=== PATIENT | male | born 1950 | race Two or more races ===

== ENCOUNTER 2019-09-24 11:17 | Day surgery (SDC) | payer MEDICARE, BC ==
--- NOTE | 2019-09-21 10:18 | HP ---
PREOPERATIVE HISTORY AND PHYSICAL: DATE OF ADMISSION/SURGERY: 09/24/19 DATE OF OFFICE VISIT/ENCOUNTER: 09/09/19 ATTENDING SURGEON: Enio Perez MD * (DICTATED BY JARET CAMPOS) PROCEDURE: Left shoulder arthroscopic rotator cuff repair versus superior capsular repair versus partial repair, arthroscopic decompression, possible removal of loose bodies, possible distal clavicle resection. HISTORY OF PRESENT ILLNESS: This is a 69-year-old man, left-hand dominant, with a prior history of rotator cuff repair surgeries, left shoulder, who suffered an anterior glenohumeral joint dislocation when he fell on 08/27/19. The shoulder was dislocated for 4 to 5 hours and he had it relocated in the hospital at [facility]. He recovered in a shoulder immobilizer, continued to have pain and weakness in the left shoulder. Subsequent MRI shows a recurrent rotator cuff tendon tear, loose bodies at the glenohumeral joint, and AC joint osteoarthritis. Dr. Perez is recommending surgical intervention at this time for best outcome and the patient has consented to proceed. PAST MEDICAL HISTORY: 1. Sleep apnea. 2. History of prostate cancer. PAST SURGICAL HISTORY: 1. Left shoulder rotator cuff repair x2. 2. Prostate surgery. 3. Open reduction internal fixation, right femur. 4. Tonsillectomy. MEDICATIONS: None. ALLERGIES: PENICILLIN, reaction unknown. FAMILY MEDICAL HISTORY: Heart disease, hypothyroidism. SOCIAL HISTORY: The patient is a retired landlord. He denies tobacco use, recreational drug use. He drinks alcohol on rare occasion. REVIEW OF SYSTEMS: Negative for general, cephalic, cardiovascular, respiratory , GI, , other musculoskeletal, integumentary, endocrine, neurologic, and hematologic symptoms. Infectious Disease: Negative for history of MRSA, hepatitis C, HIV. PHYSICAL EXAMINATION GENERAL: A well-developed, well-nourished 69-year-old male, in no acute distress. VITAL SIGNS: Height 5 feet 10 inches, weight 193 pounds. Pulse rate 100, blood pressure 124/84. HEENT: Normocephalic, atraumatic. Pupils are equal, round, and reactive to light and accommodation. Extraocular movements are intact. Throat is clear. NECK: Supple. No palpable lymph nodes. PULMONARY: Lungs are clear to auscultation bilaterally. No wheezes, rales, or rhonchi. CARDIOVASCULAR: Regular rate and rhythm. S1, S2. No murmurs, rubs, or gallops. No edema. ABDOMEN: Positive bowel sounds. Soft, nontender. MUSCULOSKELETAL: On exam of the left shoulder, there is ecchymosis about the upper arm. Passive range of motion of the left shoulder is 160 degrees of forward flexion, 70 degrees of external, and 60 degrees of internal rotation. Pain and weakness with supraspinatus stress testing with an audible crack. Pain with infraspinatus stress testing with a lag to 10 degrees external rotation with the arm at the side. NEUROLOGICAL: Alert and oriented x3. Cranial nerves II through XII are intact. Sensation is intact to light touch. IMAGING STUDIES: Left shoulder x-rays from 08/27/19 show no clear humeral head elevation. There is a possible Hill-Sachs deformity. MRI from 09/08/19 shows evidence of prior rotator cuff tendon repairs. Much of the anterior supraspinatus seems intact. The posterior supraspinatus appears torn and retracted between the apex of the humeral head and the glenoid. It is difficult to tell how much of the infraspinatus may be involved. There is significant bruising, but only minimal indent Hill-Sachs compression. There is much signal around the metallic rotator cuff anchor that is present. Subscapularis does not appear to be involved. There appear to possibly be a little bit of biceps tendon still present in the bicipital groove, but unlikely. The radiologist felt that the rotator cuff that had re-torn with the posterior supraspinatus in the anterior margin of the infraspinatus. He noted some humeral head subluxation posterior and superior, some glenohumeral ligament stretch tears and loose bodies about the joint space glenohumeral. Significant fat atrophy of the infraspinatus quite severe, [id number] of the supraspinatus. ASSESSMENT: 1. Recent left shoulder first time anterior glenohumeral joint dislocation. 2. Left shoulder recurrent rotator cuff tendon tear. 3. Left shoulder prior history of 2 prior rotator cuff tendon repairs performed at outside hospitals 3 and 12 years ago. 4. Left shoulder glenohumeral joint loose body, small. 5. Left shoulder acromioclavicular joint osteoarthritis. PLAN: The patient is scheduled to undergo surgery with Dr. Perez on 09/24/19 a left shoulder arthroscopic rotator cuff repair versus subcapsular repair versus partial repair, arthroscopic decompression, possible removal of loose bodies, possible distal clavicle resection. He will return to the office 10 to 14 days postop for followup and suture removal. Risks and benefits of surgery were discussed with the patient by Dr. Perez and the patient has consented to proceed. Postoperative pain medications will be prescribed day of surgery. JARET CAMPOS [id number]/[facility] #: [id number] [facility] HOSPITALMckenna
[~2019-09-24 11:17] MED LIST: Buffered Lidocaine 1% SYRIN* 1 ML/SYRINGE INTRADERM ONE; DiMENhydriNATE IV* 50 MG/ML VIAL IV PUSH PRN; HYDROmorphone INJ1* 1 MG/ML SYRINGE IV PRN; Lactated Ringers 1000 ML Bag* 1,000 ML IV SCH; Naloxone* 0.4 MG/ML 1 ML VIAL IV PRN; Ondansetron INJ* 2 MG/ML VIAL IV PRN
[2019-09-24] MEDS ORDERED: Clindamycin 900 MG/D5W BAG(*) 900 MG/50 ML BAG IVPB ONE (13:04)
[2019-09-24] MEDS ORDERED: Buffered Lidocaine 1% SYRIN* 1 ML/SYRINGE INTRADERM ONE (13:04)
[2019-09-24] MEDS ORDERED: Midazolam* 1 MG/ML 2 ML VIAL (2 MG) ONE (14:35)
[2019-09-24] MEDS ORDERED: fentaNYL* 50 MCG/ML 2 ML VIAL (100 MCG VIAL) ONE ×2 (14:35→18:15)
[2019-09-24] MEDS ORDERED: Famotidine IV* 10 MG/ML 2 ML (20 mg) ONE (15:24)
[2019-09-24] MEDS ORDERED: ROPIVACAINE 5 MG/ML 30 ML BTL (0.5%) ONE (15:37)
[2019-09-24] MEDS ORDERED: Bupivacaine 0.5% W/EPI SDV* 30 ML VIAL ONE (15:51)
[2019-09-24] MEDS ORDERED: EPINEPHRINE 1 MG/ML 1 ML VIAL ONE (15:54)
[2019-09-24] MEDS ORDERED: Lidocaine 2% PF * 5 ML VIAL ONE (16:05)
[2019-09-24] MEDS ORDERED: Propofol* 10 MG/ML 20 ML BTL ONE (16:06)
[2019-09-24] MEDS ORDERED: Rocuronium* 10 MG/ML VIAL ONE (16:06)
[2019-09-24] MEDS ORDERED: Dexamethasone IV* 4 MG/ML 1 ML (4 MG) ONE (16:06)
[2019-09-24] MEDS ORDERED: Ondansetron INJ* 2 MG/ML VIAL ONE (16:06)
[2019-09-24] MEDS ORDERED: Ketorolac INJ* 30 MG/ML 1 ML VIAL ONE (16:06)
[2019-09-24] MEDS ORDERED: EPHEDrine (Pressors)* 50 MG/ML VIAL ONE (16:43)
[2019-09-24] MEDS ORDERED: Labetalol IV* 5 MG/ML 20 ML VIAL ONE (18:34)
[2019-09-24 20:31] VITALS: BP 121/85
--- NOTE | 2019-09-26 21:44 | OP ---
OPERATIVE REPORT: DATE OF OPERATION: 09/24/19 DATE OF : 54 SURGEON: Dr. Enio Perez. AUDITING CONTROL CLERK: JARET Galvez and then by JARET Maria. A physician purchasing assistant was required for the length of the procedure for assistance with patient positioning, instrumentation, retraction, and closure. ANESTHESIOLOGIST: Dr. Harrison Watters. ANESTHESIA: General anesthesia, regional interscalene block anesthesia. PRE-OP DIAGNOSES: 1. Recent left shoulder first time anterior glenohumeral joint dislocation. 2. Left shoulder recurrent rotator cuff tendon tear. 3. Left shoulder prior history of 2 prior rotator cuff tendon repairs performed at an outside hospital. 4. Left shoulder glenohumeral joint loose bodies, small. 5. Left shoulder AC joint osteoarthritis. 6. Left shoulder subacromial impingement and bursitis. POST-OP DIAGNOSES: 1. Recent left shoulder first time anterior glenohumeral joint dislocation. 2. Left shoulder recurrent rotator cuff tendon tear. 3. Left shoulder prior history of 2 prior rotator cuff tendon repairs performed at an outside hospital. 4. Left shoulder glenohumeral joint loose bodies, small. 5. Left shoulder AC joint osteoarthritis. 6. Left shoulder subacromial impingement and bursitis. OPERATIVE PROCEDURES: 1. Left shoulder arthroscopic rotator cuff tendon repair, double row suture anchor fixation of an L-shaped tear along with biologic patch placement. 2. Modifier 22 for the unusual or complex nature of this procedure. This is the third rotator cuff repair for this patient. I therefore utilized both suture anchors and a biologic patch. Double row fixation along with side-to- side suturing of a complex L-shaped tear required greater than average time and consideration to the repair procedure. 3. Left shoulder arthroscopic subacromial decompression. 4. Left shoulder arthroscopic debridement of foreign body, suture material, subacromial bursitis. INDICATIONS FOR PROCEDURE: The patient is a 69-year-old man, with a history of prior 2 rotator cuff repair surgeries, 3 and 12 years ago in [place], [place] , who fell recently while skiing on 08/27/19 and sustained a shoulder glenohumeral joint dislocation. The patient had been told by his surgeon 3 years ago that his rotator cuff was barely repairable given the tissue quality. When I met the patient in clinic, he had significant pain and weakness after his dislocation, concerning for a rotator cuff tendon retear. I therefore ordered an MRI. This showed a supraspinatus rotator cuff tendon tear. It showed evidence of prior repair surgeries. The tear was noted by myself and Radiology to consist of the posterior supraspinatus tendon. However, we both noted the significant fatty atrophy of the infraspinatus muscle. The infraspinatus tendon looked very low caliber, low quality and very thin. Discussed nonoperative and operative treatment. The patient opted to move forward with surgery. Discussed risks and potential complications of surgery including the possibility of rotator cuff tendon retear. Given the fact that the patient would now be having his third rotator cuff repair, I made sure to have a biologic patch available to supplement my repair as needed to aid in healing. ANTIBIOTICS: Clindamycin 900 mg IV. IV FLUIDS: See anesthesia note. [id number] TIME: 113 minutes. SPECIMEN: None. IMPLANTS: Arthrex corkscrew 5.5 mm suture anchors, double loaded with suture tape, x2. Arthrex SwiveLock 4.75 mm anchor x1. [employer] Regeneten biologic patch x1, size medium. COMPLICATIONS: None. ESTIMATED BLOOD LOSS: Minimal. DESCRIPTION OF PROCEDURE: In the preoperative holding, the patient signed a written consent. The operative extremity was marked in the preoperative holding. The patient underwent an interscalene regional nerve block in the preoperative holding by Anesthesia. The patient was taken back to the operating room and placed supine on the operating room table. Sedated and intubated. Transferred into the lateral decubitus position. Left shoulder up. All bony prominences padded. Axillary roll placed. Longitudinal traction with the appropriate amount of forward flexion and abduction. Left shoulder was prepped and draped. Surgical time-out formally called. Spinal needle placed into glenohumeral joint left from posterior. 30 cc normal saline infused. Established a posterior glenohumeral joint portal. I commenced diagnostic arthroscopy. There was no significant loss of articular cartilage in the glenohumeral joint. There was immediately significant bare rotator cuff footprint visible as well as sutures from prior rotator cuff repair. I established an anterior glenohumeral joint portal. I entered a shaver in and let some fluid flow through the shoulder. The quality of visualization improved. Surprisingly, long head biceps tendon was in place. It had not been removed or treated in either of the prior 2 surgeries. I did not seen any need to treat it here. No superior labrum tear. No significant disease noted to the long head biceps tendon. No articular cartilage lesion. No subscapularis tendon tear. No loose bodies encountered in the glenohumeral joint as had been seen on preoperative advanced imaging. Removed the instruments from the glenohumeral joint and then placed anterior and posterior subacromial portals. Established lateral and posterolateral subacromial portals under direct visualization. Debrided subacromial bursitic tissue with arthroscopic shaver. Visualized rotator cuff. There was a little bit of scar tissue present, but then there was clearly visible a large defect of uncovered humeral head. There was some suture present and visible. I used an arthroscopic shaver to remove that suture. I viewed the rotator cuff tendon tear from a variety of angles. At first, viewing from posterior, I thought that this was a crescent shaped tear with significant retraction to just lateral of the glenoid. I used a rotator cuff grasper and I was able to pull the tendon to bone, but that produced significant dog ears on either side, which made me think that this was perhaps not the true shape of the tear. I then visualized the tear from posterolateral and lateral portals. It was then obvious that there was no crescent shaped tear. In fact, there was a longitudinal split that traversed to the level of the glenoid and medial to it. This in fact was an L-shaped tear. There had been a longitudinal split between rotator cuff tendon fibers at about the junction of the infraspinatus and supraspinatus, possibly slightly more anterior that had caused the supraspinatus to distract anteriorly along with pulling some of the supraspinatus off of its footprint, the transverse component of the L-shaped tear. Using rotator cuff graspers, I was easily able to demonstrate the tear anatomy to myself and how this should be repaired. The supraspinatus tendon tissue was noted to be very robust looking and feeling to the touch with the cuff grasper. The infraspinatus, conversely, was very attenuated and of lesser quality. I next performed a subacromial decompression. I used an arthroscopic bur to smooth out the anterior undersurface of the acromion and removed some remaining bone spurs. I next prepared the rotator cuff tendon footprint on the humeral head with the arthroscopic carmela to benefit future healing. I first placed my medial row anchor more posteriorly. I placed anterior superolateral poke hole. I placed that first, but then decided that I would prefer to pass in time my anterior stitches prior to the posterior. So, I next placed my anterior medial row anchor through another superolateral poke hole. Using an antegrade Scorpion suture passer, I placed 2 horizontal mattress stitches in the supraspinatus tendon. This reduced the tendon posteriorly onto humeral head nicely. I tied as I went with these 2 stitches. That caused a significant amount of the open visible humeral head, almost all of it. I next placed a simple stitch across the longitudinal split and L-shaped tear using a retrograde lasso suture passer. I passed a stitch and then placed it and tied it. This brought the supraspinatus and infraspinatus fibers together nicely. I next passed the sutures from the more posterior of the 2 medial row anchors. I placed a horizontal mattress stitch in the infraspinatus using a combination of antegrade and retrograde suture passers. I then used a second stitch from the more posterior anchor and I placed a simple stitch between the supraspinatus leaflet and the infraspinatus leaflet. At the conclusion of this part of the procedure, certainly no bone was visible. Rotator cuff had been brought together nicely. The repair was stable to probing and to movement of the humerus. To supplement the repair, I placed 1 lateral row anchor. I used 4 sutures from the medial row and placed them into a SwiveLock suture anchor placed laterally. The repair appeared robust. To facilitate healing given this being a revision of a revision rotator cuff repair, I next placed a patch over the area of the rotator cuff repair. I used a Regeneten biologic patch size medium and placed it into place and held it in place with PLLA bubba. I am very happy with the repair. I next examined the AC joint. I debrided some synovitic tissue about the AC joint with an arthroscopic cautery device. There did not seem to be any significant spurring on the undersurface of the clavicle. So, I held off on a formal distal clavicle resection. Instruments and fluid were removed from the subacromial space. Skin incisions were closed with [id number] 12 stitches using nylon 3-0 suture. Xeroform, 4x4s, ABDs, foam tape. Sling and abduction pillow. The patient was awakened, extubated and transferred to the PACU. DISPOSITION: The patient will use Percocet as needed for pain control, follow up with me in 10 to 14 days postoperatively in the clinic. No physical therapy at this time. Sling on at all times. [id number]/[facility] #: [id number] MTDD
== END 2019-09-24 20:59 | disposition home or self-care (01) ==
LOC: OR 11:17
PROVIDERS: ATTEND Orthopaedic Surgery
DX: S46.012A Strain of muscle(s) and tendon(s) of the rotator cuff of left shoulder, initial encounter (principal); M75.42 Impingement syndrome of left shoulder; M75.52 Bursitis of left shoulder; M19.012 Primary osteoarthritis, left shoulder; M24.012 Loose body in left shoulder; V00.321A Fall from snow-skis, initial encounter; Y93.23 Activity, snow (alpine) (downhill) skiing, snowboarding, sledding, tobogganing and snow tubing; Y92.39 Other specified sports and athletic area as the place of occurrence of the external cause; G89.18 Other acute postprocedural pain; Z85.46 Personal history of malignant neoplasm of prostate; G47.33 Obstructive sleep apnea (adult) (pediatric)
CPT/HCPCS: C1713; J1100; J1885; J2250; J2405; J2704; J2795; J3010